=== PATIENT | female | born 1955 | race Caucasian/White ===

== ENCOUNTER → 2017-02-20 | Outpatient (CLI) | payer BC ==
[~2017-02-20] MED LIST: ACID REDUCER150 MG PO; AMLODIPINE-BENA1 CA1 PO; DESYREL100 MG PO; EFFEXOR-XR75 MG PO; OMEPRAZOLE40 M1 PO; PRAVACHOL20 MG PO
--- NOTE | ~2017-02-20 | MY11 ---
[facility] A Service of [facility] RADIOLOGY TEXT RESULTS PATIENT: KEYONA BURCIAGA LOCATION: [facility] : 59 UNIT #: [id number] AGE: [address]: CHEYENNE REYNA SEX: F ORDER DR: [id number] [address] [address] [id number] MR#: [id number] Acc #: [id number] NAME: KEYONA BURCIAGA : 1955 SEX: F STUDY DATE/TIME: 02/20/2017 11:51 UNIT: [facility] ROOM: STUDY DESCRIPTION: MY Mammogram Screening Dig Jose Attending Physician: Cheyenne Reyna M.D. Referring Physician: Cheyenne Reyna M.D. Ordering Physician: Cheyenne Reyna M.D. Primary Care Physician: Edgar Peres M.D. MEDICAL IMAGING REPORT This report is preliminary unless electronic signature is present. EXAM Bilateral digital screening mammogram with CAD, 02/20/2017 INDICATION 62-year-old female for routine screening. No reported problems and no personal history of breast cancer. Family history positive in a maternal cousin. No surgeries. TECHNIQUE CC and MLO views of the breasts were obtained and reviewed with an FDA-approved CAD device. COMPARISON 08/21/2015, 10/18/2013, 05/12/2012 FINDINGS Breast parenchyma is composed of scattered fibroglandular densities. The pattern is unchanged. There is no new dominant nodule, mass or suspicious cluster of microcalcifications. Benign-appearing nodularity bilaterally stable. IMPRESSION Benign screening mammogram. One year followup recommended. Patients over the age of 40 are entered into a reminder system with target due date for the next mammogram. A result letter will also be sent to the patient. BIRADS: 2 Benign Finding Dictated by... Sorin Aviles M.D. [facility] A Service of [facility] RADIOLOGY TEXT RESULTS PATIENT: KEYONA BURCIAGA LOCATION: [facility] : 59 UNIT #: [id number] AGE: [address]: CHEYENNE REYNA SEX: F ORDER DR: THIS IS AN ELECTRONICALLY VERIFIED REPORT Sorin Aviles M.D. at 02/26/2017 4:01 PM Tavia TD: 02/26/2017 09:49 JOB #: [id number] MEDICAL IMAGING REPORT Page 1 of 1
== END | disposition home or self-care (01) ==
LOC: SMAM 11:21
DX: Z12.31 Encounter for screening mammogram for malignant neoplasm of breast (principal); Z80.3 Family history of malignant neoplasm of breast
CPT/HCPCS: G0202